=== PATIENT | female | born 1965 | race Caucasian/White ===

== ENCOUNTER 2023-10-02 07:18 | Observation (INO) ==
[2023-10-02] MEDS ORDERED: IOPAMIDOL 100 ML BOTTLE IV ONE (07:19)
[2023-10-02 08:48] LABS: ALT/SGPT 13 U/L (<40); AST/SGOT 18 U/L (<32); Albumin 3.9 gm/dL (3.2-5.2); Alkaline Phosphatase 80 U/L (39-117); Basophils # (Auto) 0.01 K/mcL (0.00-0.30); Basophils % (Auto) 0.1 % (0.0-2.0); Bilirubin,Total 0.6 mg/dL (0.1-1.0); Blood Urea Nitrogen 12 mg/dL (6-20); Calcium 9.2 mg/dL (8.6-10.4); Carbon Dioxide 16 mmol/L (22-30); Chloride 107 mmol/L (96-108); Eosinophils # (Auto) 0 K/mcL (0.00-0.70); Eosinophils % (Auto) 0 % (0.0-7.0); Globulin 3.8 gm/dL (2.2-3.7); Glomerular Filtration Rate 102; Glucose 185 mg/dL (70-105); Hematocrit 41.3 % (34.1-44.9); Hemoglobin 13.7 g/dL (11.2-15.7); Lymphocytes # (Auto) 0.43 K/mcL (1.50-4.80); Lymphocytes % (Auto) 2.5 % (15.5-49.0); Mean Cell Volume 97.2 fL (80.0-100.0); Mean Corpuscular HGB Conc 33.2 g/dL (31.0-36.0); Mean Platelet Volume 8.6 fL (8.8-12.5); Monocytes # (Auto) 0.47 K/mcL (0.10-0.90); Monocytes % (Auto) 2.7 % (1.0-12.0); Neutrophils % (Auto) 94.1 % (38.0-78.0); Platelet Count 296 K/mcL (140-440); RBC 4.25 M/mcL (3.59-5.38); Red Cell Distribution Width 12.3 % (11.5-14.5); WBC 17.2 K/mcL (4.5-11.0)
[2023-10-02 09:00] LABS: Appearance,Urine Clear (Clear); Bilirubin,Urine Small mg/dL (Negative); Color,Urine Yellow; Culture Indicated,Urine No; Glucose,Urine (UA) 100 mg/dL (Negative); Ketones,Urine 15 mg/dL (Negative); Leukocyte Esterase,Urine Negative /uL (Negative); Nitrate,Urine Negative (Negative); PH,Urine 6.5 (5.0-9.0); Protein,Urine >=300 mg/dL (Negative); Specific Gravity,Urine >= 1.030 (1.000-1.035); Urine Blood Small ery/mcL (Negative); Urine Hyaline Cast 1 /lph (0-2); Urine RBC 1 /hpf (0-3); Urine Squamous Epithelial Cell 0 /hpf (0-4); Urine WBC 0 /hpf (0-4); Urobilinogen,Urine >=8.0 mg/dL
[2023-10-02] MEDS: morphine 2 MG/ML VIAL IV ONE (10:13)
[2023-10-02] MEDS: HYDROmorphone 0.5 MG/0.5 ML SYRINGE IV ONE (12:38)
[2023-10-02 13:05] LABS: Basophils # (Auto) 0 K/mcL (0.00-0.30); Basophils % (Auto) 0 % (0.0-2.0); Eosinophils # (Auto) 0 K/mcL (0.00-0.70); Eosinophils % (Auto) 0 % (0.0-7.0); Hematocrit 43.5 % (34.1-44.9); Hemoglobin 14.2 g/dL (11.2-15.7); Lymphocytes # (Auto) 0.54 K/mcL (1.50-4.80); Lymphocytes % (Auto) 2.9 % (15.5-49.0); Mean Cell Volume 97.5 fL (80.0-100.0); Mean Corpuscular HGB Conc 32.6 g/dL (31.0-36.0); Mean Platelet Volume 8.7 fL (8.8-12.5); Monocytes # (Auto) 0.53 K/mcL (0.10-0.90); Monocytes % (Auto) 2.9 % (1.0-12.0); Neutrophils % (Auto) 93.9 % (38.0-78.0); Platelet Count 300 K/mcL (140-440); RBC 4.46 M/mcL (3.59-5.38); WBC 18.5 K/mcL (4.5-11.0)
[2023-10-02 13:18] LABS: ALT/SGPT 13 U/L (<40); AST/SGOT 18 U/L (<32); Alkaline Phosphatase 85 U/L (39-117); Bilirubin,Total 0.5 mg/dL (0.1-1.0); Blood Urea Nitrogen 12 mg/dL (6-20); Calcium 9.5 mg/dL (8.6-10.4); Carbon Dioxide 16 mmol/L (22-30); Chloride 107 mmol/L (96-108); Glomerular Filtration Rate 108; Glucose 168 mg/dL (70-105)
[2023-10-02] MEDS: KETOROLAC 30 MG/ML VIAL IV ONE (14:38)
[2023-10-02] MEDS: ACETAMINOPHEN 1,000 MG/100 ML BAG IV ONE (16:09)
[2023-10-02] MEDS ORDERED: traZODone HCL 50 MG TABLET PO PRN (18:02)
[2023-10-02] MEDS ORDERED: IPRATROPIUM/ALBUTEROL 3 ML AMPUL.NEB NEB PRN (18:02)
[2023-10-02] MEDS ORDERED: ONDANSETRON 4 MG/2 ML VIAL IV PRN (18:02)
[2023-10-02] MEDS ORDERED: ACETAMINOPHEN 325 MG TABLET PO PRN (18:02)
[2023-10-02] MEDS: morphine 4 MG/ML VIAL IV PRN (18:22)
[2023-10-02] MEDS: 0.9 % SODIUM CHLORIDE 1,000 ML IV SCH (18:22)
[2023-10-02] MEDS: CIPROFLOXACIN 400 MG/200 ML BAG IV SCH (19:20)
[2023-10-02] MEDS: SENNOSIDES 1 TABLET PO SCH (20:10)
[2023-10-02] MEDS: DOCUSATE SODIUM 100 MG CAPSULE PO SCH (20:10)
[2023-10-02] MEDS: 0.9 % SODIUM CHLORIDE 10 ML SYRINGE IV SCH (20:10)
[2023-10-02] MEDS: KETOROLAC 30 MG/ML VIAL IV PRN (20:41)
[2023-10-02] MEDS ORDERED: GABAPENTIN 100 MG CAPSULE PO PRN (20:50)
[2023-10-02] MEDS ORDERED: ZOLPIDEM 5 MG TABLET PO PRN (20:50)
[2023-10-02] MEDS: metroNIDAZOLE 500 MG/100 ML BAG IV SCH (21:24)
[2023-10-02] MEDS: OMEPRAZOLE 20 MG CAPSULE PO SCH (22:37)
[2023-10-02] MEDS: NALTREXONE 4.5 MG PO SCH (22:38)
[2023-10-02] MEDS: cloNIDine HCL 0.1 MG TABLET PO SCH (22:39)
[2023-10-02] MEDS: hydrALAZINE 20 MG/ML VIAL IV PRN (22:45)
[2023-10-02 23:46] LABS: Amphetamine Screen,Urine None detected; Barbiturate Screen,Urine None detected; Benzodiazepines Screen,Urine None detected; Cannabinoid Screen,Urine None detected; Cocaine Screen,Urine None detected; Opiate Screen,Urine Suspect Positive; Oxycodone, Urine Screen None detected; Phencyclidine Screen,Urine None detected
[2023-10-03] MEDS: HYDROcodone/APAP 10/325MG TABLET PO PRN (04:07)
[2023-10-03 06:46] LABS: Basophils # (Auto) 0.01 K/mcL (0.00-0.30); Basophils % (Auto) 0.1 % (0.0-2.0); Eosinophils # (Auto) 0.01 K/mcL (0.00-0.70); Eosinophils % (Auto) 0.1 % (0.0-7.0); Hematocrit 44.1 % (34.1-44.9); Hemoglobin 14.6 g/dL (11.2-15.7); Lymphocytes # (Auto) 1.09 K/mcL (1.50-4.80); Lymphocytes % (Auto) 7.1 % (15.5-49.0); Mean Cell Volume 97.1 fL (80.0-100.0); Mean Corpuscular HGB Conc 33.1 g/dL (31.0-36.0); Mean Platelet Volume 8.9 fL (8.8-12.5); Monocytes # (Auto) 1.15 K/mcL (0.10-0.90); Monocytes % (Auto) 7.5 % (1.0-12.0); Neutrophils % (Auto) 84.5 % (38.0-78.0); Platelet Count 363 K/mcL (140-440); RBC 4.54 M/mcL (3.59-5.38); Red Cell Distribution Width 12.2 % (11.5-14.5); WBC 15.4 K/mcL (4.5-11.0)
[2023-10-03 07:18] LABS: ALT/SGPT 7 U/L (<40); AST/SGOT 35 U/L (<32); Albumin 3.5 gm/dL (3.2-5.2); Alkaline Phosphatase 77 U/L (39-117); Bilirubin,Total 0.4 mg/dL (0.1-1.0); Blood Urea Nitrogen 21 mg/dL (6-20); Carbon Dioxide 16 mmol/L (22-30); Chloride 107 mmol/L (96-108); Globulin 3.5 gm/dL (2.2-3.7); Glomerular Filtration Rate 102; Glucose 150 mg/dL (70-105)
[2023-10-03] MEDS: CYCLOBENZAPRINE 10 MG TABLET PO PRN (07:36)
[2023-10-03] MEDS: LORATADINE 10 MG TABLET PO SCH (08:10)
[2023-10-03] MEDS: TOPIRAMATE 100 MG TABLET PO SCH (08:10)
[2023-10-03] MEDS: [UNRECOGNIZED DRUG - OTHER] PO SCH (10:10)
[2023-10-03] MEDS: metroNIDAZOLE 500 MG/100 ML BAG IV SCH (14:11)
[2023-10-03] MEDS: NALTREXONE 4.5 MG PO SCH (19:26)
[2023-10-03] MEDS ORDERED: ZOLPIDEM 5 MG TABLET PO PRN (21:00)
[2023-10-04 06:42] LABS: Basophils # (Auto) 0.03 K/mcL (0.00-0.30); Basophils % (Auto) 0.3 % (0.0-2.0); Eosinophils # (Auto) 0.06 K/mcL (0.00-0.70); Eosinophils % (Auto) 0.5 % (0.0-7.0); Hematocrit 38.3 % (34.1-44.9); Hemoglobin 12.7 g/dL (11.2-15.7); Lymphocytes # (Auto) 1.34 K/mcL (1.50-4.80); Lymphocytes % (Auto) 12.1 % (15.5-49.0); Mean Corpuscular HGB Conc 33.2 g/dL (31.0-36.0); Mean Platelet Volume 8.9 fL (8.8-12.5); Monocytes # (Auto) 1.02 K/mcL (0.10-0.90); Monocytes % (Auto) 9.2 % (1.0-12.0); Neutrophils % (Auto) 77.7 % (38.0-78.0); Platelet Count 275 K/mcL (140-440); RBC 3.87 M/mcL (3.59-5.38); Red Cell Distribution Width 12.5 % (11.5-14.5); WBC 11.1 K/mcL (4.5-11.0)
[2023-10-04 06:53] LABS: ALT/SGPT 14 U/L (<40); AST/SGOT 30 U/L (<32); Albumin 3.1 gm/dL (3.2-5.2); Albumin/Globulin Ratio 1.1 (1.0-2.3); Alkaline Phosphatase 66 U/L (39-117); Bilirubin,Total 0.3 mg/dL (0.1-1.0); Blood Urea Nitrogen 32 mg/dL (6-20); Calcium 8.5 mg/dL (8.6-10.4); Carbon Dioxide 18 mmol/L (22-30); Chloride 108 mmol/L (96-108); Globulin 2.9 gm/dL (2.2-3.7); Glomerular Filtration Rate 82; Glucose 112 mg/dL (70-105)
[2023-10-12 00:09] LABS: Opiate Screen Positive ng/mL (Cutoff=300)
[2023-10-15] MEDS ORDERED: ERGOCALCIFEROL (VITAMIN D2) 50,000 UNIT CAPSULE PO SCH (09:00)
== END 2023-10-04 12:00 | disposition home or self-care (01) ==
LOC: ED 07:18 → MEDSUR 07:18
PROVIDERS: ADMIT Internal Medicine; ATTEND Internal Medicine